=== PATIENT | female | born 1975 | race American Indian/Alaskan Native ===

== ENCOUNTER 2018-06-09 15:15 | Emergency (ER) | payer MEDICARE ==
[2018-06-09 15:28] VITALS: BP 186/100
--- NOTE | 2018-06-09 16:22 | Emergency Department Report ---
ED General Adult HPI - General Chief complaint: Sore Throat Stated complaint: VOMITING/SORE THROAT Time Seen by Provider: 06/09/18 16:05 Source: patient Mode of arrival: Ambulatory Limitations: No Limitations - History of Present Illness Initial comments: Ms. Bragg is a 43 yo female who presents with 4 months of vomiting and stomach pain. Hx of T1 DM, CKD Stage IV, HTN Followed by Mimi CUELLAR in [place]. Also followed by shoes hand sewer Dr. Che and Dr. Avery transfer professor. All physicians are in [place]. She has had vomiting daily for quite some time. Has not been evaluated by GI specialist. She has moved to the area recently. Denies pain now. Symptoms are worse with certain foods. +Burning sensation in throat. -: month(s) (4) Location: abdomen Quality: burning Consistency: constant Worsens with: eating Associated Symptoms: loss of appetite, nausea/vomiting - Related Data Previous Rx's Medication Instructions Recorded Last Taken Type Metoclopramide [Reglan] 10 mg PO QID 30 Days #120 tab 06/09/18 Unknown Rx Omeprazole 40 mg PO DAILY 30 Days #30 06/09/18 Unknown Rx capsule. Allergies Allergy/AdvReac Type Severity Reaction Status Date / Time codeine AdvReac Vomiting Verified 06/09/18 15:28 ED Review of Systems ROS: Stated complaint: VOMITING/SORE THROAT Other details as noted in HPI Comment: All other systems reviewed and negative Constitutional: malaise. denies: fever Respiratory: cough Cardiovascular: denies: chest pain Gastrointestinal: abdominal pain, nausea ED Past Medical Hx - Past Medical History Previous Medical History?: Yes Hx Hypertension: Yes Hx Diabetes: Yes Additional medical history: Stage 4 kidney disease - Surgical History Past Surgical History?: No - Social History Smoking Status: Current Every Day Smoker Substance Use Type: None - Medications Home Medications: Home Medications Medication Instructions Recorded Confirmed Last Taken Type Metoclopramide [Reglan] 10 mg PO QID 30 Days #120 tab 06/09/18 Unknown Rx Omeprazole 40 mg PO DAILY 30 Days #30 06/09/18 Unknown Rx capsule. ED Physical Exam - General Limitations: No Limitations General appearance: alert, in no apparent distress - Head Head exam: Present: atraumatic, normocephalic - Eye Eye exam: Absent: scleral icterus, conjunctival injection, nystagmus - ENT ENT exam: Present: normal exam, normal orophraynx, mucous membranes moist - Neck Neck exam: Present: normal inspection. Absent: tenderness, meningismus - Respiratory Respiratory exam: Present: normal lung sounds bilaterally. Absent: respiratory distress, wheezes, rales - Cardiovascular Cardiovascular Exam: Present: regular rate, normal rhythm, normal heart sounds. Absent: bradycardia, tachycardia, systolic murmur, diastolic murmur, rubs, gallop - GI/Abdominal GI/Abdominal exam: Present: soft, normal bowel sounds. Absent: distended, tenderness, guarding, rebound - Extremities Exam Extremities exam: Present: normal inspection - Back Exam Back exam: Present: normal inspection - Neurological Exam Neurological exam: Present: alert, oriented X3 - Psychiatric Psychiatric exam: Present: normal affect, normal mood - Skin Skin exam: Present: warm, dry, intact, normal color. Absent: rash ED Course Vital Signs 06/09/18 15:24 Temperature 99.8 F H Pulse Rate 109 H Respiratory 18 Rate Blood Pressure 186/100 O2 Sat by Pulse 100 Oximetry ED Medical Decision Making - Medical Decision Making Ms. Bragg is a patient with type 1 diabetes who presents with 4 months of vomiting. Suspect diabetic gastroparesis with esophagitis. rx: reglan, omeprazole referred to GI specialist and [facility] physician Critical care attestation.: If time is entered above; I have spent that time in minutes in the direct care of this critically ill patient, excluding procedure time. ED Disposition Clinical Impression: Vomiting, T1DM (type 1 diabetes mellitus) Disposition: DC-01 TO HOME OR SELFCARE Is pt being admited?: No Does the pt Need Aspirin: No Condition: Stable Instructions: Acute Nausea and Vomiting (ED) Prescriptions: Metoclopramide [Reglan] 10 mg PO QID 30 Days #120 tab Omeprazole 40 mg PO DAILY 30 Days #30 capsule.dr Referrals: LISA CHE MD [Staff Physician] - 3-5 Days NATALI MARTIN MD [Staff Physician] - 3-5 Days
== END 2018-06-09 16:30 | disposition home or self-care (01) ==
LOC: ED 15:15
DX: E10.22 Type 1 diabetes mellitus with diabetic chronic kidney disease (principal); I12.9 Hypertensive chronic kidney disease with stage 1 through stage 4 chronic kidney disease, or unspecified chronic kidney disease; N18.4 Chronic kidney disease, stage 4 (severe); F17.200 Nicotine dependence, unspecified, uncomplicated; Z88.5 Allergy status to narcotic agent
CPT/HCPCS: 99282

== ENCOUNTER 2018-12-16 15:35 | Inpatient (IN) | payer MEDICARE ==
--- NOTE | 2018-12-16 15:46 | Emergency Department Report ---
Chief Complaint: Nausea/Vomiting/Diarrhea Stated Complaint: DIALYISIS CHECK/CHEST CLOTS/VOMIT Time Seen by Provider: 12/16/18 15:43 - HPI History of Present Illness: COULD NOT GET HD TODAY DUE TO CLOTTED L SUBCLAVIAN LINE HAS HAD ISSUES WITH ACCESS HD CLINIC COULD NOT DECLOT- [facility] [place] THEY SENT HER HERE FOR HD LAST HD THURS NO PROBLEMS TOOK OFF 3 NO AV FISTULA HAS BEEN ON HD SINCE 08/01 LMP 2010 PMH DM HTN ESRD PSH HYSTERECTOMY MSE COMPLETED MSE screening note: Focused history and physical exam performed. Due to findings the following was ordered: ED Disposition for MSE Condition: Stable
[2018-12-16 16:04] LABS: Hematocrit 35.1 % (30.3-42.9); Hemoglobin 11.7 gm/dl (10.1-14.3); Mean Corpuscular HGB Conc 33 % (30-34); Mean Corpuscular Volume 94 fl (79-97); Platelet Count 266 K/mm3 (140-440); Red Blood Count 3.74 M/mm3 (3.65-5.03); Red Cell Distribution Width 15.3 % (13.2-15.2)
[2018-12-16 16:10] LABS: INR 0.87 (0.87-1.13); Partial Thromboplastin Time 38.8 Sec. (24.2-36.6)
[2018-12-16 16:15] LABS: Calcium 9.1 mg/dL (8.4-10.2)
--- NOTE | 2018-12-16 16:54 | Emergency Department Report ---
ED General Adult HPI - General Chief complaint: Nausea/Vomiting/Diarrhea Stated complaint: DIALYISIS CHECK/CHEST CLOTS/VOMIT Time Seen by Provider: 12/16/18 15:43 Source: patient Mode of arrival: Ambulatory Limitations: No Limitations - History of Present Illness Initial comments: Patient is a 43-year-old female who has a history of end-stage renal disease on hemodialysis who is presenting with a need for dialysis. Patient states that she went to dialysis facility today and they were unable to perform dialysis secondary to her access being clotted. Patient has a hemodialysis access line in the left subclavian. They would try to declot the line and were unsuccessful. Patient's last dialysis was 12/14/2018. The patient states this is the third time that she has had access that has felt failed. She is scheduled for AV graft placement in the next several weeks. Patient states that she has some nausea vomiting earlier today which is now resolved. Patient may complaint is fatigue at this time. Patient denies any fevers chills currently not vomiting diarrhea or chest pain. Severity scale (0 -10): 0 - Related Data Previous Rx's Medication Instructions Recorded Last Taken Type Metoclopramide [Reglan] 10 mg PO QID 30 Days #120 tab 06/09/18 Unknown Rx Omeprazole 40 mg PO DAILY 30 Days #30 06/09/18 Unknown Rx capsule. Amoxicillin/Potassium Clav 1 each PO BID #20 tablet 09/08/18 Unknown Rx [Augmentin 875-125 Tablet] Ibuprofen [Motrin] 800 mg PO Q8HR PRN #15 tablet 09/08/18 Unknown Rx Allergies Allergy/AdvReac Type Severity Reaction Status Date / Time codeine AdvReac Vomiting Verified 12/16/18 15:43 ED Review of Systems ROS: Stated complaint: DIALYISIS CHECK/CHEST CLOTS/VOMIT Other details as noted in HPI Comment: All other systems reviewed and negative ED Past Medical Hx - Past Medical History Previous Medical History?: Yes Hx Hypertension: Yes Hx Diabetes: Yes Hx Renal Disease: Yes (ESRD --) Additional medical history: Stage 4 kidney disease - Surgical History Past Surgical History?: Yes Additional Surgical History: left chest vas cath, hysterectomy - Social History Smoking Status: Never Smoker Substance Use Type: None - Medications Home Medications: Home Medications Medication Instructions Recorded Confirmed Last Taken Type Metoclopramide [Reglan] 10 mg PO QID 30 Days #120 tab 06/09/18 Unknown Rx Omeprazole 40 mg PO DAILY 30 Days #30 06/09/18 Unknown Rx capsule. Amoxicillin/Potassium Clav 1 each PO BID #20 tablet 09/08/18 Unknown Rx [Augmentin 875-125 Tablet] Ibuprofen [Motrin] 800 mg PO Q8HR PRN #15 tablet 09/08/18 Unknown Rx ED Physical Exam - General Limitations: No Limitations General appearance: alert, in no apparent distress - Head Head exam: Present: atraumatic, normocephalic - Eye Eye exam: Present: normal appearance - ENT ENT exam: Present: mucous membranes moist - Neck Neck exam: Present: normal inspection - Respiratory Respiratory exam: Present: normal lung sounds bilaterally, chest wall tenderness (at the left upper chest at the insertion point of her catheter. there is no surrounding erythema or purulent drainage). Absent: respiratory distress, wheezes, rales, rhonchi - Cardiovascular Cardiovascular Exam: Present: regular rate, normal rhythm, normal heart sounds. Absent: systolic murmur, diastolic murmur, rubs, gallop - GI/Abdominal GI/Abdominal exam: Present: soft, normal bowel sounds. Absent: distended, tenderness, guarding - Extremities Exam Extremities exam: Present: normal inspection - Back Exam Back exam: Present: normal inspection - Neurological Exam Neurological exam: Present: alert, oriented X3 - Psychiatric Psychiatric exam: Present: normal affect, normal mood - Skin Skin exam: Present: warm, dry, intact, normal color. Absent: rash ED Course Vital Signs 12/16/18 15:43 Temperature 97.8 F Pulse Rate 97 H Respiratory 18 Rate Blood Pressure 123/70 O2 Sat by Pulse 100 Oximetry ED Medical Decision Making - Lab Data Result diagrams: 12/16/18 15:49 12/16/18 15:49 Lab Results 12/16/18 12/16/18 12/16/18 Range/Units 15:49 15:49 15:49 WBC 10.1 (4.5-11.0) K/mm3 RBC 3.74 (3.65-5.03) M/mm3 Hgb 11.7 (10.1-14.3) gm/dl Hct 35.1 (30.3-42.9) % MCV 94 (79-97) fl MCH 31 (28-32) pg MCHC 33 (30-34) % RDW 15.3 H (13.2-15.2) % Plt Count 266 (140-440) K/mm3 PT 12.3 (12.2-14.9) Sec. INR 0.87 (0.87-1.13) APTT 38.8 H (24.2-36.6) Sec. Sodium 135 L (137-145) mmol/L Potassium 4.0 (3.6-5.0) mmol/L Chloride 95.1 L (98-107) mmol/L Carbon Dioxide 25 (22-30) mmol/L Anion Gap 19 mmol/L BUN 45 H (7-17) mg/dL Creatinine 6.1 H (0.7-1.2) mg/dL Estimated GFR 9 ml/min BUN/Creatinine Ratio 7 % Glucose 291 H (65-100) mg/dL Calcium 9.1 (8.4-10.2) mg/dL Phosphorus (2.5-4.5) mg/dL 12/16/18 Range/Units 15:49 WBC (4.5-11.0) K/mm3 RBC (3.65-5.03) M/mm3 Hgb (10.1-14.3) gm/dl Hct (30.3-42.9) % MCV (79-97) fl MCH (28-32) pg MCHC (30-34) % RDW (13.2-15.2) % Plt Count (140-440) K/mm3 PT (12.2-14.9) Sec. INR (0.87-1.13) APTT (24.2-36.6) Sec. Sodium (137-145) mmol/L Potassium (3.6-5.0) mmol/L Chloride (98-107) mmol/L Carbon Dioxide (22-30) mmol/L Anion Gap mmol/L BUN (7-17) mg/dL Creatinine (0.7-1.2) mg/dL Estimated GFR ml/min BUN/Creatinine Ratio % Glucose (65-100) mg/dL Calcium (8.4-10.2) mg/dL Phosphorus 4.40 (2.5-4.5) mg/dL - Medical Decision Making Patient is a 43-year-old asthmatic female who is presenting with need for dialy sis. Patient had some nausea vomiting early this morning which is now resolved. Patient may complaint is fatigue. Patient does have some pain at her access site but it does not appear to be any surface erythema or purulent drainage from the insertion site. Her dialysis and was unable to declot her dialysis catheter patient was sent in for dialysis. Patient will be admitted to the hospitalist service. Critical care attestation.: If time is entered above; I have spent that time in minutes in the direct care of this critically ill patient, excluding procedure time. ED Disposition Clinical Impression: Missed dialysis, ESRD (end stage renal disease), Dialysis catheter clot or failure Disposition: OP ADMIT IP TO THIS HOSP Is pt being admited?: Yes Does the pt Need Aspirin: No Condition: Stable Time of Disposition: 16:54
--- NOTE | 2018-12-16 17:44 | History and Physical Report ---
History of Present Illness Chief complaint: I need dialysis History of present illness: 43 YO Female with DM, HTN, ESRD on HD(T,R,Sa),last dialyzed on , chronic lumbar pain presents to ED for evaluation. Pt states that she presented to her dialysis center for her regularly scheduled dialysis, but was unable to undergo dialysis due to clotted dialysis catheter. Pt instructed to seek further care at [facility]. Pt transported to [facility] ED via private vehicle. Pt seen and evaluated in ED and found to have ESRD, as well as clotted Permacath. Pt also reports nausea, and 3 episodes of vomiting over the past 12 hours. Pt symptoms have resolved at time of exam. Pt denies fever, chills, CP, palpitations, Diarrhea, ingestion of food/water from new or different sources, skin rash, productive cough, unilateral leg swelling, calf pain, individual/family history of DVT/PE/ Blood Clotting Disorders, or recent ill contacts . Pt denies pain. Pt resting comfortably in bed. Pt admitted to medical floor. Vascular surgery consulted in ED for permacath placement. No prior admissions for review. All listed medication reconciled at time of admission. Past History Past Medical History: ESRD, other Past Surgical History: hysterectomy, Other (Permacath left chest) Social history: single Family history: hypertension Medications and Allergies Allergies Allergy/AdvReac Type Severity Reaction Status Date / Time codeine AdvReac Vomiting Verified 12/16/18 15:43 Home Medications Medication Instructions Recorded Confirmed Last Taken Type Metoclopramide [Reglan] 10 mg PO QID 30 Days #120 tab 06/09/18 Unknown Rx Omeprazole 40 mg PO DAILY 30 Days #30 06/09/18 Unknown Rx capsule. Amoxicillin/Potassium Clav 1 each PO BID #20 tablet 09/08/18 Unknown Rx [Augmentin 875-125 Tablet] Ibuprofen [Motrin] 800 mg PO Q8HR PRN #15 tablet 09/08/18 Unknown Rx Review of Systems Constitutional: no weight loss, no weight gain, no fever, no chills Ears, nose, mouth and throat: no ear pain, no ear discharge, no tinnitis, no decreased hearing, no nose pain Breasts: no change in shape, no swelling, no mass Cardiovascular: no chest pain, no orthopnea, no palpitations, no rapid/irregular heart beat, no edema Respiratory: no cough, no cough with sputum, no excessive sputum, no hemoptysis Gastrointestinal: nausea, vomiting, no abdominal pain, no diarrhea, no constipation, no change in bowel habits, no melena, no hematochezia, no loss of appetite Genitourinary Female: no pelvic pain, no flank pain, no menorrhagia, no dysuria, no urinary frequency, no urgency Rectal: no pain, no incontinence, no bleeding Musculoskeletal: low back pain, no neck stiffness, no neck pain, no shooting arm pain, no leg numbness/tingling Integumentary: no rash, no pruritis, no redness, no sores, no wounds Neurological: no paralysis, no weakness, no parathesias, no numbness, no tingling, no seizures, no syncope Psychiatric: no anxiety, no memory loss, no change in sleep habits, no sleep disturbances, no insomnia, no hypersomnia, no change in appetite, no change in libido Endocrine: no cold intolerance, no heat intolerance, no polyphagia, no excessive thirst, no polydipsia, no polyuria Hematologic/Lymphatic: no easy bruising, no easy bleeding, no lymphadenopathy Allergic/Immunologic: no urticaria, no allergic rhinitis, no wheezing, no persistent infections Exam - Constitutional Vitals: Temp Pulse Resp BP Pulse Ox 97.8 F 97 H 18 123/70 100 12/16/18 15:43 12/16/18 15:43 12/16/18 15:43 12/16/18 15:43 12/16/18 15:43 General appearance: Present: no acute distress, well-nourished, obese - EENT Eyes: Present: PERRL ENT: hearing intact, clear oral mucosa - Neck Neck: Present: supple, normal ROM - Respiratory Respiratory effort: normal Respiratory: bilateral: CTA - Cardiovascular Heart Sounds: Present: S1 & S2. Absent: rub, click - Extremities Extremities: pulses symmetrical, No edema Peripheral Pulses: within normal limits - Abdominal General gastrointestinal: Present: soft, non-tender, non-distended, normal bowel sounds Female genitourinary: Present: normal - Integumentary Integumentary: Present: clear, warm, dry - Musculoskeletal Musculoskeletal: gait normal, strength equal bilaterally - Psychiatric Psychiatric: appropriate mood/affect, intact judgment & insight - Neurologic Neurologic: CNII-XII intact, moves all extremities Results - Labs CBC & Chem 7: 12/16/18 15:49 12/16/18 15:49 Labs: Abnormal lab results 12/16/18 12/16/18 12/16/18 Range/Units 15:49 15:49 15:49 RDW 15.3 H (13.2-15.2) % APTT 38.8 H (24.2-36.6) Sec. Sodium 135 L (137-145) mmol/L Chloride 95.1 L (98-107) mmol/L BUN 45 H (7-17) mg/dL Creatinine 6.1 H (0.7-1.2) mg/dL Glucose 291 H (65-100) mg/dL Assessment and Plan - Patient Problems (1) Dialysis catheter clot or failure Current Visit: No Status: Acute (2) ESRD (end stage renal disease) Current Visit: No Status: Acute (3) Diabetes Current Visit: Yes Status: Acute Plan to address problem: ADA diet, insulin, accu chec, HGB A1c (4) HTN (hypertension) Current Visit: Yes Status: Acute Qualifiers: Hypertension type: essential hypertension Qualified Code(s): I10 - Essential (primary) hypertension Plan to address problem: Monitor BP q shift, afterload reduction, hydralazine prn for systolic above 155 (5) Lumbar pain Current Visit: Yes Status: Acute Plan to address problem: Lumbar X ray, ordered: pending at time of admission (6) DVT prophylaxis Current Visit: Yes Status: Acute Plan to address problem: SCD to BLE while in bed, prophylactic heparin
[2018-12-16] MEDS ORDERED: TYLENOL PO PRN (17:46)
[2018-12-16] MEDS ORDERED: PROVENTIL IH PRN (17:46)
[2018-12-16] MEDS ORDERED: SODIUM CHLORIDE FLUSH SYRINGE 10 ML IV PRN (17:46)
[2018-12-16] MEDS ORDERED: ZOFRAN IV PRN (17:46)
--- NOTE | 2018-12-16 17:51 | XRay Report ---
PROCEDURE: XR CHEST 1V AP TECHNIQUE: Chest single AP HISTORY: sob, missed HD COMPARISONS: FINDINGS: Left central venous catheter with tip at the SVC. Cardiac and mediastinal contours are unremarkable. No focal pulmonary infiltrate identified. No pleural fluid collection seen. Pulmonary vasculature is unremarkable. IMPRESSION: Central venous catheter in satisfactory position No acute cardiopulmonary findings. This document is electronically signed by Manish Huizar MD., December 16 2018 05:49:43 PM ET
[2018-12-16] MEDS ORDERED: REGLAN PO SCH (18:00)
[2018-12-16] MEDS ORDERED: APRESOLINE IV PRN (19:23)
[2018-12-16] MEDS ORDERED: D50W (25GM) Syringe IV PRN (19:24)
--- NOTE | 2018-12-16 21:35 | XRay Report ---
PROCEDURE: Lumbar spine. TECHNIQUE: 3 views. HISTORY: Back pain. COMPARISONS: None. FINDINGS: The lumbar vertebrae have normal height and alignment. There are no fractures. There is no spondyloli sthesis. The disc spaces are well-maintained. The sacrum and sacroiliac joints appear normal. IMPRESSION: Normal study. This document is electronically signed by Saturnino Sands MD., December 16 2018 09:33:50 PM ET
[2018-12-16] MEDS ORDERED: LOVENOX SUB-Q SCH ×2 (22:00)
[2018-12-16] MEDS: SODIUM CHLORIDE FLUSH SYRINGE 10 ML IV SCH (22:30)
[2018-12-16] MEDS: REGLAN PO SCH (22:30)
[2018-12-16] MEDS ORDERED: HEPARIN ONE (22:35)
[2018-12-16] MEDS ORDERED: REGLAN ONE (22:38)
[2018-12-16] MEDS: HumaLOG SUB-Q SCH (22:54)
[2018-12-16] MEDS: HEPARIN SUB-Q SCH (22:55)
[2018-12-16] MEDS ORDERED: HumaLOG SUB-Q ONE (23:18)
[2018-12-17 05:24] LABS: Calcium 9.2 mg/dL (8.4-10.2)
[2018-12-17] MEDS ORDERED: HumaLOG SUB-Q ONE (07:52)
[2018-12-17] MEDS: HumaLOG SUB-Q SCH ×2 (07:57→11:30)
--- NOTE | 2018-12-17 09:16 | Discharge Summary ---
Providers - Providers Date of Admission: 12/16/18 17:46 Attending physician: SAMSON CHERY MD 12/16/18 17:50 Consult to Physician [CONS] Urgent Comment: DR WELLS NOTIFIED [id number] Consulting Provider: JESSICA WELLS Physician Instructions: Reason For Exam: clotted off dialysis catheter Hospitalization Condition: Stable Hospital course: 43-year-old woman with end-stage renal disease. She presented to the hospital because permacath was clotted and could not be used for dialysis. -She is planned for AV graft placement in the next few weeks -She was admitted to the hospital, permacath was exchanged. Diagnoses End-stage renal disease Hypertension perma cath malfunction, dialysis access malfunction Disposition: TO HOME OR SELFCARE Time spent for discharge: 33 mins Core Measure Documentation - Palliative Care Palliative Care/ Comfort Measures: Not Applicable - Core Measures Any of the following diagnoses?: none Exam - Constitutional Vitals: Temp Pulse Resp BP Pulse Ox 98.1 F 80 16 137/87 100 12/17/18 07:17 12/17/18 07:17 12/17/18 07:17 12/17/18 07:17 12/17/18 07:17 General appearance: Present: no acute distress, well-nourished - EENT Eyes: Present: PERRL ENT: hearing intact, clear oral mucosa - Neck Neck: Present: supple, normal ROM - Respiratory Respiratory effort: normal Respiratory: bilateral: CTA - Cardiovascular Heart Sounds: Present: S1 & S2. Absent: rub, click - Extremities Extremities: pulses symmetrical, No edema Peripheral Pulses: within normal limits - Abdominal General gastrointestinal: Present: soft, non-tender, non-distended, normal bowel sounds Female genitourinary: Present: normal - Integumentary Integumentary: Present: clear, warm, dry - Musculoskeletal Musculoskeletal: gait normal, strength equal bilaterally - Psychiatric Psychiatric: appropriate mood/affect, intact judgment & insight - Neurologic Neurologic: CNII-XII intact, moves all extremities Plan Follow up with: JAC CHANG [Other] - 7 Days Prescriptions: HYDROmorphone [Dilaudid] 2 mg PO Q6HR PRN #15 tablet PRN Reason: Pain , Severe (7-10) Ondansetron [Zofran Odt] 4 mg PO Q8HR #15 tab.rapdis
[2018-12-17] MEDS ORDERED: PROTONIX PO SCH (10:00)
[2018-12-17] MEDS: SODIUM CHLORIDE FLUSH SYRINGE 10 ML IV SCH (10:00)
[2018-12-17] MEDS: REGLAN PO SCH ×2 (10:00→14:00)
[2018-12-17] MEDS ORDERED: NON-FORMULARY (Omeprazole [Omeprazole] 40 MG) PO SCH (10:00)
[2018-12-17] MEDS: HEPARIN SUB-Q SCH (10:00)
[2018-12-17] MEDS ORDERED: HEPARIN/NS 5000 UNIT/500ML(CATH LAB) 1,000 ML IR ONE (10:51)
[2018-12-17] MEDS ORDERED: NACL 0.9% 250ML 250 ML ONE (10:52)
[2018-12-17] MEDS ORDERED: ANCEF/STERILE WATER 2 GM/20 ML 2 GM/20 ML SYRINGE IV ONE (10:58)
[2018-12-17] MEDS: SUBLIMAZE ONE ×2 (11:11→11:12)
[2018-12-17] MEDS: VERSED ONE ×2 (11:11→11:12)
[2018-12-17] MEDS: XYLOCAINE 1%/ EPI 1:100,000 INFILTRATI ONE ×2 (11:12→11:20)
[2018-12-17] MEDS ORDERED: BENADRYL ONE (11:16)
[2018-12-17] MEDS: HEPARIN 10,000 UNITS/10 ML ONE ×2 (11:20→11:21)
--- NOTE | 2018-12-17 11:31 | Operative Report ---
Operative Report Operative Report: Date of procedure: 12/17/2018 Pre-operative diagnosis: ESRD Post-operative diagnosis: same Procedure name(s): Replacement of left internal jugular vein permacath over the wire with 23 cm glide passed catheter Surgeon: Anton Machuca MD, FACS Director Of Strategic Communications: none Anesthesia: local with sedation; Sedation start: 1111 Sedation end: 1127 Total sedation time: 16 minutes 2 anesthesia units EBL: minimal Operative indication: Patient is a 43 yo woman who requires hemodialysis access because her current permacath is not working. Findings: Good flow from both ports. Catheter located at the cavoatrial junction. Procedure: The patient was placed on the table in the supine position. The area over the left chest was prepped with ChloraPrep solution and draped in usual sterile fashion. 2% lidocaine plain was used for local anesthesia. The area around the existing catheter was anesthetized. The catheter and its cuff were freed up from the surrounding tissue at the current exit site. 2 stiff angled Glidewire was replaced on the ports of the existing catheter into the inferior vena cava. The old catheter was removed. The new catheter was then placed of the guidewires into the central circulation and placed in the right atrium. The guidewires were removed. The catheter was aspirated with excellent flow. It was flushed with saline without incident. It was then filled to its stated volume in each lumen with 1000 unit per milliliter heparin. Closure at the insertion site was done with 4-0 subcuticular Monocryl. The catheter was sewn to the skin with 2-0 Proline. Sterile dressings were applied. The patient tolerated the procedure well.
--- NOTE | 2018-12-17 11:34 | Consultation ---
History of Present Illness - Reason for Consult Consult date: 12/17/18 malfunctioning permacath Requesting physician: HOUSTON SUN - History of Present Illness Patient is a 43-year-old woman who has been on dialysis since the fall 2017. She's had multiple permacath placed at various locations around the city. She had an infected right internal jugular vein permacath earlier this year. It was removed and replaced with a left jugular permacath. Her most recent jugular permacath was opened on the left side and hip and replacements of the existing catheter. She presented to the dialysis unit yesterday with the catheter not functioning the center to the emergency room. She has no current complaints. Past History Past Medical History: ESRD, other Past Surgical History: hysterectomy, Other (Permacath left chest) Social history: single Family history: hypertension Medications and Allergies Allergies Allergy/AdvReac Type Severity Reaction Status Date / Time codeine AdvReac Vomiting Verified 12/16/18 15:43 Home Medications Medication Instructions Recorded Confirmed Last Taken Type Algal [place]-3 Dha 1 gm PO DAILY 12/17/18 12/17/18 Unknown History Atorvastatin 40 mg PO DAILY 12/17/18 12/17/18 Unknown History Doxycycline Hyclate 100 mg PO DAILY 12/17/18 12/17/18 Unknown History Ezetimibe 10 mg PO DAILY 12/17/18 12/17/18 Unknown History Ferrous Sulfate 325 mg PO DAILY 12/17/18 12/17/18 Unknown History Gabapentin 300 mg PO TID 12/17/18 12/17/18 Unknown History Lanthanum Carbonate 500 mg PO BIDWM 12/17/18 12/17/18 Unknown History Losartan 100 mg PO DAILY 12/17/18 12/17/18 Unknown History Metoclopramide 10 mg PO 4XD 12/17/18 12/17/18 Unknown History Metoprolol Succinate 25 mg PO DAILY 12/17/18 12/17/18 Unknown History Timolol 0.5% 1 drop OD BID 12/17/18 12/17/18 Unknown History Tretinoin 0.05% Emollient Crm 1 applicatio TP HS 12/17/18 12/17/18 Unknown History Vitamin D2 1.25 mg PO 1XW 12/17/18 12/17/18 Unknown History Active Meds: Active Medications Acetaminophen (Tylenol) 650 mg PO Q4H PRN PRN Reason: Pain MILD(1-3)/Fever >100.5/CHUNG Albuterol (Proventil) 2.5 mg IH Q4H PRN PRN Reason: Shortness Of Breath Dextrose (D50w (25gm) Syringe) 50 ml IV PRN PRN PRN Reason: Hypoglycemia Heparin Sodium (Porcine) (Heparin) 5,000 unit SUB-Q Q12HR [facility] Last Admin: 12/16/18 22:55 Dose: 5,000 unit Documented by: Hydralazine HCl (Apresoline) 10 mg IV Q6H PRN PRN Reason: SBP > 155 Insulin Human Lispro (Humalog) 0 unit SUB-Q ACHS [facility]; Protocol Last Admin: 12/17/18 07:57 Dose: 3 unit Documented by: Metoclopramide HCl (Reglan) 5 mg PO QID [facility] Last Admin: 12/16/18 22:30 Dose: 5 mg Documented by: Ondansetron HCl (Zofran) 4 mg IV Q8H PRN PRN Reason: Nausea And Vomiting Pantoprazole Sodium (Protonix) 40 mg PO DAILY [facility] Sodium Chloride (Sodium Chloride Flush Syringe 10 Ml) 10 ml IV BID [facility] Last Admin: 12/16/18 22:30 Dose: 10 ml Documented by: Sodium Chloride (Sodium Chloride Flush Syringe 10 Ml) 10 ml IV PRN PRN PRN Reason: LINE FLUSH Review of Systems All systems: negative (hpi) Exam - Constitutional Vitals: Temp Pulse Resp BP Pulse Ox 98.1 F 80 20 137/87 100 12/17/18 07:17 12/17/18 07:17 12/17/18 09:03 12/17/18 07:17 12/17/18 07:17 General appearance: Present: no acute distress, well-nourished - EENT Eyes: Present: PERRL ENT: hearing intact, clear oral mucosa - Neck Neck: Present: supple, normal ROM - Respiratory Respiratory effort: normal - Cardiovascular Heart Sounds: Present: S1 & S2. Absent: rub, click - Extremities Extremities: pulses symmetrical, No edema Peripheral Pulses: within normal limits - Abdominal General gastrointestinal: Present: soft, non-tender, non-distended, normal bowel sounds - Integumentary Integumentary: Present: clear, warm, dry - Musculoskeletal Musculoskeletal: gait normal, strength equal bilaterally - Psychiatric Psychiatric: appropriate mood/affect, intact judgment & insight - Neurologic Neurologic: CNII-XII intact, moves all extremities - Additional findings Additional findings: She has a PermCath which originates in her left internal jugular vein and exits her skin over the left clavicular area. There is no evidence of erythema or drainage at the site. Results - Labs CBC & Chem 7: 12/16/18 15:49 12/17/18 04:32 Labs: Abnormal lab results 12/16/18 12/16/18 12/16/18 Range/Units 15:49 15:49 15:49 RDW 15.3 H (13.2-15.2) % APTT 38.8 H (24.2-36.6) Sec. Sodium 135 L (137-145) mmol/L Chloride 95.1 L (98-107) mmol/L BUN 45 H (7-17) mg/dL Creatinine 6.1 H (0.7-1.2) mg/dL Glucose 291 H (65-100) mg/dL POC Glucose (70-105) Hemoglobin A1c (4-6) % 12/16/18 12/16/18 12/17/18 Range/Units 15:49 22:55 04:32 RDW (13.2-15.2) % APTT (24.2-36.6) Sec. Sodium (137-145) mmol/L Chloride (98-107) mmol/L BUN 45 H (7-17) mg/dL Creatinine 5.4 H (0.7-1.2) mg/dL Glucose 193 H (65-100) mg/dL POC Glucose 239 H (70-105) Hemoglobin A1c 9.5 H (4-6) % 12/17/18 Range/Units 07:24 RDW (13.2-15.2) % APTT (24.2-36.6) Sec. Sodium (137-145) mmol/L Chloride (98-107) mmol/L BUN (7-17) mg/dL Creatinine (0.7-1.2) mg/dL Glucose (65-100) mg/dL POC Glucose 204 H (70-105) Hemoglobin A1c (4-6) % Assessment and Plan - Patient Problems (1) Dialysis catheter clot or failure Current Visit: Yes Status: Acute Plan to address problem: Patient has had multiple permacath which failed. This one appears to be nonfunctional as well. Recommend replacement of the PermCath over the wire. She can have her dialysis afterward.
[2018-12-17 14:27] VITALS: BP 121/70
== END 2018-12-17 16:00 | disposition home or self-care (01) | DRG 314 ==
LOC: ED 15:35 → 3A 17:46
PROVIDERS: ADMIT Internal Medicine; ATTEND Internal Medicine
PROC: 0JPT3XZ Removal of Tunneled Vascular Access Device from Trunk Subcutaneous Tissue and Fascia, Percutaneous Approach (ICD-10-PCS; principal; 2018-12-17)
PROC: 0JH63XZ Insertion of Tunneled Vascular Access Device into Chest Subcutaneous Tissue and Fascia, Percutaneous Approach (ICD-10-PCS; 2018-12-17)
PROC: 02PY33Z Removal of Infusion Device from Great Vessel, Percutaneous Approach (ICD-10-PCS; 2018-12-17)
PROC: 02H633Z Insertion of Infusion Device into Right Atrium, Percutaneous Approach (ICD-10-PCS; 2018-12-17)
DX: T82.49XA Other complication of vascular dialysis catheter, initial encounter (principal); N18.6 End stage renal disease; I12.0 Hypertensive chronic kidney disease with stage 5 chronic kidney disease or end stage renal disease; E11.22 Type 2 diabetes mellitus with diabetic chronic kidney disease; M54.5 Low back pain; G89.29 Other chronic pain; Y83.8 Other surgical procedures as the cause of abnormal reaction of the patient, or of later complication, without mention of misadventure at the time of the procedure; Z90.710 Acquired absence of both cervix and uterus; Z82.49 Family history of ischemic heart disease and other diseases of the circulatory system; Z88.5 Allergy status to narcotic agent; Z79.899 Other long term (current) drug therapy; Y92.89 Other specified places as the place of occurrence of the external cause
CPT/HCPCS: 36415; 36581; 71045; 72100; 77001; 80048; 82962; 83036; 84100; 85027; 85610; 85730; 96372; 96374; G0378; C1750; J0690; J1200; J1644; J1815; J2250; J3010; J7050

== ENCOUNTER 2019-04-06 00:40 | Emergency (ER) | payer MEDICARE ==
[2019-04-06 01:41] LABS: Basophils % (Auto) 0.2 % (0.0-1.8); Eosinophils % (Auto) 0.3 % (0.0-4.3); Hemoglobin 10.9 gm/dl (10.1-14.3); Lymphocytes # (Auto) 0.9 K/mm3 (1.2-5.4); Lymphocytes % (Auto) 7.9 % (13.4-35.0); Mean Corpuscular HGB Conc 35 % (30-34); Mean Corpuscular Volume 95 fl (79-97); Monocytes # (Auto) 0.6 K/mm3 (0.0-0.8); Monocytes % (Auto) 5.4 % (0.0-7.3); Platelet Count 304 K/mm3 (140-440); Red Blood Count 3.27 M/mm3 (3.65-5.03); Red Cell Distribution Width 13.8 % (13.2-15.2)
[2019-04-06 02:07] LABS: Calcium 9.1 mg/dL (8.4-10.2)
[2019-04-06] MEDS ORDERED: ZOFRAN ODT PO STA (03:31)
[2019-04-06] MEDS ORDERED: PEPCID IV ONE (03:32)
[2019-04-06] MEDS ORDERED: CARAFATE PO ONE (03:32)
--- NOTE | 2019-04-06 04:58 | Emergency Department Report ---
ED General Adult HPI - General Chief complaint: Nausea/Vomiting/Diarrhea Stated complaint: WEAKNESS AND VOMITTING Time Seen by Provider: 04/06/19 03:08 Source: patient, EMS (ems notes not available at time of chart dictation), RN notes reviewed, old records reviewed Mode of arrival: Stretcher Limitations: No Limitations - History of Present Illness Initial comments: This is a 44-year-old female. The patient's pellet post inspector is Dr. Sung Reports that she receives dialysis at [facility]. The patient reportedly has a history of end-stage renal disease, on dialysis, diabetes, hypertension, typically is dialyzed on Tuesday, , Tuesday. The patient's history is somewhat incongruous and inconsistent. The patient initially presents with a complaint of nausea and vomiting for the past week. She states that she's been vomiting every day. However, she cannot tell me how she is receiving dialysis over the past week, while vomiting. She initially told me that her right upper extremity fistula was surgically taken out. Then she states she was not taken out. Then she states that she is worried that her left-sided permacath is infected. However, she is not having fevers. She describes body pain. She also describes chest wall pain after reported nausea and vomiting. She does not make urine. She reports no DVT or pulmonary embolism risk factors. She was reportedly at [facility], within the past 7-10 days, she believes on March 29. As per verbal report from nursing staff, patient was asleep on a stretcher upon arrival. No active vomiting has been observed in the emergency room. We called up [facility], and we spoke to the ER staff. They corroborated that the patient was indeed present on the aforementioned date, that she had a normal lactic acid, did not have a leukocytosis, and that blood cultures were drawn, and no growth has been noted to date. -: Gradual, days(s) Location: chest (patient endorses chest wall pain with nausea and vomiting. The chest wall pain does not radiate to the back arms or neck.) Radiation: other Quality: other Consistency: other Improves with: other Worsens with: other - Related Data Home Medications Medication Instructions Recorded Confirmed Last Taken Algal [place]-3 Dha 1 gm PO DAILY 12/17/18 12/17/18 Unknown Atorvastatin 40 mg PO DAILY 12/17/18 12/17/18 Unknown Doxycycline Hyclate 100 mg PO DAILY 12/17/18 12/17/18 Unknown Ezetimibe 10 mg PO DAILY 12/17/18 12/17/18 Unknown Ferrous Sulfate 325 mg PO DAILY 12/17/18 12/17/18 Unknown Gabapentin 300 mg PO TID 12/17/18 12/17/18 Unknown Lanthanum Carbonate 500 mg PO BIDWM 12/17/18 12/17/18 Unknown Losartan 100 mg PO DAILY 12/17/18 12/17/18 Unknown Metoclopramide 10 mg PO 4XD 12/17/18 12/17/18 Unknown Metoprolol Succinate 25 mg PO DAILY 12/17/18 12/17/18 Unknown Timolol 0.5% 1 drop OD BID 12/17/18 12/17/18 Unknown Tretinoin 0.05% Emollient Crm 1 applicatio TP 12/17/18 12/17/18 Unknown Vitamin D2 1.25 mg PO 1XW 12/17/18 12/17/18 Unknown Previous Rx's Medication Instructions Recorded Last Taken Type HYDROmorphone [Dilaudid] 2 mg PO Q6HR PRN #15 tablet 12/17/18 Unknown Rx Ondansetron [Zofran Odt] 4 mg PO Q8HR #15 tab.rapdis 12/17/18 Unknown Rx Famotidine [Pepcid] 20 mg PO BID #10 tablet 04/06/19 Unknown Rx Metoclopramide [Reglan] 10 mg PO QID PRN #30 tablet 04/06/19 Unknown Rx Ondansetron [Zofran Odt] 4 mg PO Q8HR PRN #20 tab.rapdis 04/06/19 Unknown Rx Allergies Allergy/AdvReac Type Severity Reaction Status Date / Time codeine AdvReac Vomiting Verified 12/16/18 15:43 ED Review of Systems ROS: Stated complaint: WEAKNESS AND VOMITTING Other details as noted in HPI Constitutional: malaise, weakness. denies: fever Eyes: denies: eye discharge ENT: denies: epistaxis Respiratory: denies: wheezing Cardiovascular: denies: syncope Gastrointestinal: nausea, vomiting. denies: abdominal pain Genitourinary: denies: dysuria Musculoskeletal: myalgia Skin: denies: lesions Neurological: weakness Psychiatric: anxiety ED Past Medical Hx - Past Medical History Previous Medical History?: Yes Hx Hypertension: Yes Hx Congestive Heart Failure: No Hx Diabetes: Yes Hx Renal Disease: Yes (ESRD T-TH-S) Hx Asthma: No Hx COPD: No Additional medical history: Stage 4 kidney disease - Surgical History Past Surgical History?: Yes Additional Surgical History: left chest vas cath, hysterectomy - Social History Smoking Status: Never Smoker Substance Use Type: None - Medications Home Medications: Home Medications Medication Instructions Recorded Confirmed Last Taken Type Algal [place]-3 Dha 1 gm PO DAILY 12/17/18 12/17/18 Unknown History Atorvastatin 40 mg PO DAILY 12/17/18 12/17/18 Unknown History Doxycycline Hyclate 100 mg PO DAILY 12/17/18 12/17/18 Unknown History Ezetimibe 10 mg PO DAILY 12/17/18 12/17/18 Unknown History Ferrous Sulfate 325 mg PO DAILY 12/17/18 12/17/18 Unknown History Gabapentin 300 mg PO TID 12/17/18 12/17/18 Unknown History HYDROmorphone [Dilaudid] 2 mg PO Q6HR PRN #15 tablet 12/17/18 Unknown Rx Lanthanum Carbonate 500 mg PO BIDWM 12/17/18 12/17/18 Unknown History Losartan 100 mg PO DAILY 12/17/18 12/17/18 Unknown History Metoclopramide 10 mg PO 4XD 12/17/18 12/17/18 Unknown History Metoprolol Succinate 25 mg PO DAILY 12/17/18 12/17/18 Unknown History Ondansetron [Zofran Odt] 4 mg PO Q8HR #15 tab.rapdis 12/17/18 Unknown Rx Timolol 0.5% 1 drop OD BID 12/17/18 12/17/18 Unknown History Tretinoin 0.05% Emollient Crm 1 applicatio TP HS 12/17/18 12/17/18 Unknown History Vitamin D2 1.25 mg PO 1XW 12/17/18 12/17/18 Unknown History Famotidine [Pepcid] 20 mg PO BID #10 tablet 04/06/19 Unknown Rx Metoclopramide [Reglan] 10 mg PO QID PRN #30 tablet 04/06/19 Unknown Rx Ondansetron [Zofran Odt] 4 mg PO Q8HR PRN #20 tab.rapdis 07/26/19 Unknown Rx ED Physical Exam - General Limitations: No Limitations General appearance: alert, anxious, obese - Head Head exam: Present: atraumatic, normocephalic - Eye Eye exam: Present: normal appearance, EOMI. Absent: nystagmus - ENT ENT exam: Present: normal exam, normal orophraynx, mucous membranes moist, normal external ear exam - Neck Neck exam: Present: normal inspection, full ROM. Absent: tenderness, meningismus - Respiratory Respiratory exam: Present: normal lung sounds bilaterally, chest wall tender ness, other (there is a left-sided permacath, with no redness, pus or streaking). Absent: respiratory distress, wheezes, rales, rhonchi, stridor - Cardiovascular Cardiovascular Exam: Present: regular rate, normal rhythm, normal heart sounds. Absent: bradycardia, tachycardia, irregular rhythm, systolic murmur, diastolic murmur, rubs, gallop - GI/Abdominal GI/Abdominal exam: Present: soft. Absent: distended, tenderness, guarding, rebound, rigid, pulsatile mass - Extremities Exam Extremities exam: Present: normal inspection (there is a right upper extremity fistula, with no redness, pus or streaking), full ROM, other (2+ pulses noted in the bilateral upper, lower extremities. Compartments soft. No long bony tenderness. The pelvis is stable.). Absent: calf tenderness - Back Exam Back exam: Present: normal inspection, full ROM. Absent: tenderness, CVA tenderness (R), CVA tenderness (L), paraspinal tenderness, vertebral tenderness - Neurological Exam Neurological exam: Present: alert, other (Extraocular movements intact. Tongue midline. No facial droop. Facial sensation intact to light touch in the V1, V2, V3 distribution bilaterally. 5 and 5 strength in 4 extremities.. Sensation is intact to light touch in 4 extremities.). Absent: motor sensory deficit - Psychiatric Psychiatric exam: Present: anxious - Skin Skin exam: Present: warm, dry, intact, normal color. Absent: rash ED Course Vital Signs 04/06/19 04/06/19 04/06/19 00:45 03:16 04:02 Temperature 98.5 F 98.6 F Pulse Rate 101 H 104 H 104 H Respiratory 20 14 20 Rate Blood Pressure 230/110 Blood Pressure 95/68 119/75 [Left] O2 Sat by Pulse 100 100 98 Oximetry 04/06/19 04/06/19 04/06/19 04:29 04:32 05:19 Temperature Pulse Rate 94 H 96 H Respiratory 15 15 14 Rate Blood Pressure Blood Pressure 125/74 110/68 [Left] O2 Sat by Pulse 97 97 98 Oximetry ED Medical Decision Making - Lab Data Result diagrams: 04/06/19 01:15 04/06/19 01:15 Vital Signs 04/06/19 04/06/19 04/06/19 00:45 03:16 04:02 Temperature 98.5 F 98.6 F Pulse Rate 101 H 104 H 104 H Respiratory 20 14 20 Rate Blood Pressure 230/110 Blood Pressure 95/68 119/75 [Left] O2 Sat by Pulse 100 100 98 Oximetry 04/06/19 04/06/19 04:29 04:32 Temperature Pulse Rate 94 H Respiratory 15 15 Rate Blood Pressure Blood Pressure 125/74 [Left] O2 Sat by Pulse 97 97 Oximetry Lab Results 04/06/19 04/06/19 Range/Units 01:15 01:15 WBC 11.9 H (4.5-11.0) K/mm3 RBC 3.27 L (3.65-5.03) M/mm3 Hgb 10.9 (10.1-14.3) gm/dl Hct 31.0 (30.3-42.9) % MCV 95 (79-97) fl MCH 33 H (28-32) pg MCHC 35 H (30-34) % RDW 13.8 (13.2-15.2) % Plt Count 304 (140-440) K/mm3 Lymph % (Auto) 7.9 L (13.4-35.0) % [place] % (Auto) 5.4 (0.0-7.3) % Eos % (Auto) 0.3 (0.0-4.3) % Baso % (Auto) 0.2 (0.0-1.8) % Lymph # 0.9 L (1.2-5.4) K/mm3 [place] # 0.6 (0.0-0.8) K/mm3 Eos # 0.0 (0.0-0.4) K/mm3 Baso # 0.0 (0.0-0.1) K/mm3 Seg Neutrophils % 86.2 H (40.0-70.0) % Seg Neutrophils # 10.2 H (1.8-7.7) K/mm3 Sodium 136 L (137-145) mmol/L Potassium 3.6 (3.6-5.0) mmol/L Chloride 92.9 L (98-107) mmol/L Carbon Dioxide 27 (22-30) mmol/L Anion Gap 20 mmol/L BUN 32 H (7-17) mg/dL Creatinine 7.0 H (0.7-1.2) mg/dL Estimated GFR 8 ml/min BUN/Creatinine Ratio 5 % Glucose 236 H (65-100) mg/dL Calcium 9.1 (8.4-10.2) mg/dL Total Bilirubin 0.40 (0.1-1.2) mg/dL AST 15 (5-40) units/L ALT 9 (7-56) units/L Alkaline Phosphatase 74 (35-129) units/L Total Protein 8.5 H (6.3-8.2) g/dL Albumin 4.0 (3.9-5) g/dL Albumin/Globulin Ratio 0.9 % - EKG Data 04/06/19 04:59 This is a sinus rhythm, tachycardia, 103 bpm, normal axis, QTC prolonged, this is not consistent with ST elevation myocardial infarction. It is furthermore unchanged from prior EKG from 2017. - Radiology Data Radiology results: image reviewed interpreted by me: X-ray of the chest is negative for acute disease. There is a left-sided permaca th noted. - Medical Decision Making Differential diagnosis, including not limited to: fabrication of symptoms, resolved nausea and vomiting, azotemia, uremia, costochondritis, hypertension, end-stage renal disease Assessment and plan: 44-year-old female with erratic history and multiple complaints, including resolved nausea and vomiting, chest wall pain, and concern for infected permacath. Objectively speaking, her tachycardia has resolved, her hypertension has resolved, she is able to tolerate liquid feeds, and blood cultures recently drawn have been negative. The patient has been observed in the ER for over 4 hours without clinical decompensation. The patient does not meet 1013 criteria. Her abdomen is soft and benign, with no rebound, guarding or peritoneal signs. Laboratory studies do not suggest significant azotemia or uremia. The patient may be discharged with supportive pain medication, nausea medication, instructions to follow up with outpatient nephrology and/or primary care. Critical care attestation.: If time is entered above; I have spent that time in minutes in the direct care of this critically ill patient, excluding procedure time. ED Disposition Clinical Impression: ESRD (end stage renal disease), HTN (hypertension), History of nausea and vomiting Disposition: TO HOME OR SELFCARE Is pt being admited?: No Does the pt Need Aspirin: No Condition: Stable Instructions: Hypertension (ED) Additional Instructions: Take the medications as needed/directed. Follow up with her primary care doctor or pellet post inspector within the next 3-5 days. Advance diet as tolerated. Make certain to adhere to a low salt diet. Return to the emergency room right away with new, worsening or different symptoms, or symptoms not present on the initial emergency room evaluation. Prescriptions: Famotidine [Pepcid] 20 mg PO BID #10 tablet Metoclopramide [Reglan] 10 mg PO QID PRN #30 tablet PRN Reason: Nausea Ondansetron [Zofran Odt] 4 mg PO Q8HR PRN #20 tab.rapdis PRN Reason: Nausea Referrals: RUEL ESTRADA MD [Primary Care Provider] - 3-5 Days ANMOL GARCIA MD [Staff Physician] - 3-5 Days
[2019-04-06 05:19] VITALS: BP 110/68
--- NOTE | 2019-04-06 06:43 | XRay Report ---
CHEST 1 VIEW 04/06/2019 3:33 AM INDICATION / CLINICAL INFORMATION: Chest wall pain. Nausea with vomiting. COMPARISON: None available. FINDINGS: SUPPORT DEVICES: A left internal jugular vein PermCath is in good position, terminating over the righ t atrium. HEART / MEDIASTINUM: No significant abnormality. LUNGS / PLEURA: No significant pulmonary or pleural abnormality. No pneumothorax. ADDITIONAL FINDINGS: No significant additional findings. IMPRESSION: No acute findings. Signer Name: Artemio Scales MD Signed: 04/06/2019 6:38 AM Workstation Name: [id number]
== END 2019-04-06 05:29 | disposition home or self-care (01) ==
LOC: ED 00:40
DX: E11.22 Type 2 diabetes mellitus with diabetic chronic kidney disease (principal); I12.0 Hypertensive chronic kidney disease with stage 5 chronic kidney disease or end stage renal disease; N18.6 End stage renal disease; Z99.2 Dependence on renal dialysis; R07.89 Other chest pain; R11.2 Nausea with vomiting, unspecified; Z90.710 Acquired absence of both cervix and uterus; Z79.899 Other long term (current) drug therapy; Z88.6 Allergy status to analgesic agent
CPT/HCPCS: 36415; 71045; 80053; 85025; 93005; 93010; 96374; Q0162